=== PATIENT | female | born 1975 ===

== ENCOUNTER 2019-06-14 06:00 | Day surgery (SDC) | payer OTHER ==
[2019-06-14] MEDS ORDERED: DOXYCYCLINE HY100 M3 PO (13:58)
[2019-06-14] MEDS ORDERED: Tylenol #3 PO (13:58)
== END 2019-06-14 15:20 | disposition home or self-care (01) ==
LOC: CIR.AMB 06:00
DX: N84.0 Polyp of corpus uteri (principal); D25.0 Submucous leiomyoma of uterus